=== PATIENT | female | born 1970 | race Caucasian/White ===

== ENCOUNTER 2022-12-05 23:26 | Emergency (ER) | payer OTHER ==
[~2022-12-05] VITALS: Ht 170.2 cm; Wt 70.3 kg
[2022-12-05] MEDS ORDERED: LEVSOD75 PO (23:48)
[2022-12-05] MEDS ORDERED: LIOT25 PO (23:48)
[2022-12-06] MEDS ORDERED: FAMO20 PO (01:11)
[2022-12-06] MEDS ORDERED: PRED20 PO (01:11)
[2022-12-06] MEDS ORDERED: EPIPEN0.3 MG/0.1 IM (01:11)
[2022-12-06 01:15] VITALS: BP 125/76
== END 2022-12-06 01:30 | disposition home or self-care (01) ==
LOC: ER 23:26
DX: R49.0 Dysphonia (principal); R11.0 Nausea; T45.0X5A Adverse effect of antiallergic and antiemetic drugs, initial encounter; Z88.1 Allergy status to other antibiotic agents; Z79.899 Other long term (current) drug therapy; E03.9 Hypothyroidism, unspecified; J45.909 Unspecified asthma, uncomplicated
CPT/HCPCS: 93005; 93010; 96374; 96375; 99284-25; J2405; J2930